=== PATIENT | female | born 1975 | race Caucasian/White ===

== ENCOUNTER 2019-04-13 17:31 | Emergency (ER) | payer MEDICAID ==
[~2019-04-13] VITALS: Ht 160 cm; Wt 77.3 kg
[2019-04-13 17:44] VITALS: Ht 160 cm; Wt 77.3 kg
[2019-04-13] MEDS ORDERED: BACLOFEN20 M1 PO (20:00)
[2019-04-13] MEDS ORDERED: VOLTAREN75 MG PO (20:00)
[2019-04-13 20:23] VITALS: BP 120/67
== END 2019-04-13 20:46 | disposition home or self-care (01) ==
LOC: D.ER 17:31
DX: M79.604 Pain in right leg (principal); S89.91XA Unspecified injury of right lower leg, initial encounter; W22.8XXA Striking against or struck by other objects, initial encounter; Y93.89 Activity, other specified; Y92.89 Other specified places as the place of occurrence of the external cause

== ENCOUNTER 2020-04-15 09:00 | Outpatient (CLI) | payer MEDICAID ==
[2019-04-13 17:44] VITALS: BMI 30.1
[~2020-04-15 09:00] MED LIST: BACLOFEN20 M1 PO; VOLTAREN75 MG PO
== END 2020-04-15 10:00 | disposition home or self-care (01) ==
LOC: D.MAMMO 09:00
PROVIDERS: ATTEND Family Medicine
DX: Z12.31 Encounter for screening mammogram for malignant neoplasm of breast (principal)